=== PATIENT | male | born 1965 | race Caucasian/White ===

== ENCOUNTER → 2020-10-07 | Outpatient (CLI) | payer OTHER ==
[~2020-10-07] MED LIST: IOHEXOL 300 MG/ML 75 ML VIAL. IV ONE; IOHEXOL 300 MG/ML 75 ML VIAL. ONE; IOHEXOL 350 MG/ML 100 ML VIAL. IV ONE
[2020-10-07 10:07] LABS: CREATININE 0.8 mg/dL (0.7-1.3); GFR 101.1
--- NOTE | 2020-10-07 11:06 | RAD ---
EXAM: Abdomen and pelvis CT with and without intravenous contrast. HISTORY: Hematuria. TECHNIQUE: Computed tomographic images of the abdomen and pelvis were obtained prior to and following the administration of intravenous contrast. Multiplanar reformatting was performed. *One or more of the following individualized dose reduction techniques were utilized for this examination: 1. Automated exposure control. 2. Adjustment of the mA and/or kV according to patient size. 3. Use of iterative reconstruction technique. COMPARISON: None. FINDINGS: Evaluation of the lower thorax demonstrates mild cardia megaly. There is a trace right pleural effusion. There is mild elevation of the right hemidiaphragm with right basilar compressive atelectasis. There is no infiltrate. There is hepatomegaly and hepatic steatosis. The gallbladder is distended due to the preprandial status of patient. The pancreas, spleen and adrenal glands are unremarkable. No abnormally thickened or dilated loop of bowel is seen. There is colonic diverticulosis. There is no diverticulitis. There is no nephroureterolithiasis or hydronephrosis. There is a 4.0 cm simple cyst within the anterior upper mid zone of the left kidney. There is an enhancing solid partially exophytic mass within the lower pole the left kidney measuring 2.1 cm. There is a 10 mm exophytic cyst along the lateral lower pole of the right kidney. There is a 2.1 cm exophytic cyst with slight wall enhancement within the posterior mid zone of the right kidney. There is deformation of the bladder base due to an enlarged prostate. There are prostate calcifications. No bladder mass is seen. The aorta is normal in caliber. There are nonspecific mesenteric and retroperitoneal lymph nodes. These are not clearly pathologically enlarged. There is degenerative change involving the spine and there is mild lumbar scoliosis. There is no acute or suspicious osseous lesion. IMPRESSION: 1. 2.1 cm solid lesion along the inferior left kidney, concerning for renal cell carcinoma. 2. Bilateral renal cysts, the largest which measures 4.0 cm on the left and is simple in appearance. There is a 2.1 cm cyst with slight wall enhancement within the posterior mid zone of the right kidney. No solid lesion component is seen. 3. Hepatomegaly and hepatic steatosis. 4. Prostatomegaly. 5. Trace right pleural effusion. 6. Diverticulosis. Electronically signed by: Shruti Whitaker MD (10/07/2020 11:03 AM) [id number]
== END ==
LOC: CT 09:23
PROVIDERS: ATTEND Urology
DX: N40.0 Benign prostatic hyperplasia without lower urinary tract symptoms (principal); K57.30 Diverticulosis of large intestine without perforation or abscess without bleeding; R31.0 Gross hematuria; I51.7 Cardiomegaly; N28.1 Cyst of kidney, acquired; M47.816 Spondylosis without myelopathy or radiculopathy, lumbar region; K76.0 Fatty (change of) liver, not elsewhere classified
CPT/HCPCS: 36415; 74178; 82565; Q9967

== ENCOUNTER → 2022-01-11 | Outpatient (CLI) | payer OTHER ==
[~2022-01-11] MED LIST changes: -IOHEXOL 300 MG/ML 75 ML VIAL. ONE; -IOHEXOL 350 MG/ML 100 ML VIAL. IV ONE
[2022-01-11 10:25] LABS: CREATININE 0.8 mg/dL (0.7-1.3)
[2022-01-11 10:26] LABS: GFR 100.4
--- NOTE | 2022-01-11 11:37 | RAD ---
EXAM: Abdomen and pelvis CT with intravenous contrast. HISTORY: Left renal cancer. TECHNIQUE: Computed tomographic images of the abdomen and pelvis were obtained following the administ ration of intravenous contrast. Multiplanar reformatting was performed. *One or more of the following individualized dose reduction techniques were utilized for this examina tion: 1. Automated exposure control. 2. Adjustment of the mA and/or kV according to patient size. 3. Use of iterative reconstruction technique. COMPARISON: 10/07/2020. FINDINGS: Evaluation of the lower thorax demonstrates bilateral basilar atelectasis. There is a trace pericardial effusion, new compared to the prior study. There is mild enlargement of the left hepatic lobe, stable in appearance. No focal hepatic lesion is seen. The gallbladder, pancreas and spleen ar e unremarkable. The adrenal glands are unremarkable. There is linear postoperative increased density along the lower pole the left kidney due to prior par tial nephrectomy surgery. The previously demonstrated mass in this location is no longer seen. There is a 3.8 cm simple cyst within the left kidney. There is a 10 mm simple cyst within the superior righ t kidney and 12 mm simple exophytic cyst within the inferior right kidney. There is a 1.8 cm exophyti c hypodense lesion with eccentric focus of hyperdensity within the posterior right kidney. There is n o hydronephrosis. There is prostatomegaly and there are prostate calcifications. The bladder is unrem arkable. There is no appendicitis. There is no bowel obstruction. There is colonic diverticulosis. There is no convincing diverticulitis. There is aortic and aortic branch vessel atherosclerosis. There are nonsp ecific retroperitoneal and mesenteric lymph nodes, stable in appearance. There are degenerative ceballos es involving the spine and hips. There is no acute or suspicious osseous finding. IMPRESSION: 1. Findings consistent with partial left nephrectomy. The previously demonstrated mass within the low er poles no longer seen. 2. 1.8 cm exophytic lesion within the posterior right kidney demonstrating an eccentric focus of hype rdensity. This may be a cyst with enhancing mural nodule, focally thickened wall or internal debris. The interval decrease in the size of this lesion compared to the prior CT dated 10/07/2020 favors margie gnity. Correlation with a renal sonogram or comparison of attenuation of the region of hyperdensity w ith noncontrast imaging may be useful for characterization. 3. Multiple simple renal cysts. 4. Colonic diverticulosis. 5. Prostatomegaly. 6. New trace pericardial effusion. Electronically signed by: Shruti Whitaker MD (01/11/2022 11:35 AM) [id number]
== END ==
LOC: CT 09:28
PROVIDERS: ATTEND Urology
DX: C64.2 Malignant neoplasm of left kidney, except renal pelvis (principal); K57.30 Diverticulosis of large intestine without perforation or abscess without bleeding; J98.11 Atelectasis; N28.1 Cyst of kidney, acquired
CPT/HCPCS: 36415; 74177; 82565; 84520; Q9967